=== PATIENT | male | born 1995 | race Two or more races ===

== ENCOUNTER 2019-06-04 12:53 | Emergency (ER) | payer MEDICAID ==
[~2019-06-04] VITALS: Ht 188 cm; Wt 65.8 kg
--- NOTE | 2019-06-04 13:06 | NUR ---
CAME IN FOR DYSURIA AND HEMATURIA x 2 DAYS. 02/02 PS, TO ER BED 10, HOOKED TO BP MONITOR AND POX, CHANGED TO HOSP GOWN, WARM BLANKET PROVIDED, PATIENT AOx 4, BREATHING EVEN AND UNLABORED, NAD NOTED. ORDER FULFILLMENT SPECIALIST DEGRASSE AT BEDSIDE
--- NOTE | 2019-06-04 13:13 | NUR ---
URINE SAMPLE SENT TO LAB
[2019-06-04 13:26] LABS: APPEARANCE,URINE TURBID (CLEAR); BILIRUBIN,URINE SMALL (NEGATIVE); BLOOD, URINE SMALL Ery/uL (NEGATIVE); COLOR,URINE ORANGE (YELLOW); KETONES,URINE 15 (NEGATIVE); LEUKOCYTE ESTERASE ,URINE MODERATE (NEGATIVE); NITRITE, URINE POSITIVE (NEGATIVE); PH,URINE 8.5 (5.0-8.0); PROTEIN,URINE 100 mg/dl (NEGATIVE); UGLUCOSE 250 MG/DL mg/dL (NEGATIVE); UROBILINOGEN,URINE >=8.0 EU/dL (0.2)
[2019-06-04] MEDS ORDERED: ACETAMINOPHEN ES 500 MG TABLET ONE (13:26)
[2019-06-04 13:29] LABS: BASOPHILS % (AUTO) 0.2 % (0.0-2.0); EOSINOPHILS % (AUTO) 0.1 % (0.0-6.0); HEMATOCRIT 41 % (39-51); HEMOGLOBIN 14.6 g/dL (13.5-17.5); LYMPHOCYTES # (AUTO) 1.4 /CMM (0.8-4.8); LYMPHOCYTES % (AUTO) 8.7 % (20.0-44.0); MEAN CORPUSCULAR HGB CONC 36 g/dl (31.0-36.0); MEAN CORPUSCULAR VOLUME 95 fL (80-96); MONOCYTES # (AUTO) 0.9 /CMM (0.1-1.30); NEUTROPHILS # (AUTO) 13.5 /CMM (1.8-8.9); PLATELET COUNT (AUTO) 236 /CMM (150-450); RED BLOOD CELL COUNT(AUTO) 4.35 MIL/uL (4.5-6.0); WHITE BLOOD COUNT (AUTO) 15.8 K/uL (4.3-11.0)
[2019-06-04] MEDS ORDERED: ACETAMINOPHEN ES 500 MG TABLET PO ONE (13:30)
[2019-06-04] MEDS ORDERED: IV NS 0.9% 1,000 ML BAG IV ONE (13:30)
[2019-06-04 13:34] LABS: BACTERIA,URINE Rare /HPF (None Seen); SQUAMOUS EPITHELIAL CELL,UR 0-2 /HPF (None Seen); WBC,URINE TOO NUMEROUS TO COUN /HPF (0-3)
[2019-06-04 13:35] LABS: MUCUS,URINE Moderate /LPF (None Seen); URINE AMORPHOUS URATE Few /HPF (None Seen)
[2019-06-04 13:38] LABS: CALCIUM, SERUM 9.6 mg/dL (8.5-10.1); CREATININE 1.1 mg/dL (0.6-1.3); POTASSIUM 3.6 mmol/L (3.5-5.1)
[2019-06-04 13:45] LABS: ALBUMIN 4.5 g/dL (3.4-5.0); BILIRUBIN,DIRECT 0.4 mg/dL (0.0-0.2); BILIRUBIN,TOTAL 2.1 mg/dL (0.2-1.0); TOTAL PROTEIN, SERUM 8.1 g/dL (6.4-8.2)
[2019-06-04] MEDS ORDERED: LEVOFLOXACIN 500 MG /D5W 100ML 100 ML IV ONE (13:50)
[2019-06-04] MEDS ORDERED: PHENAZOPYRIDINE HCL 200 MG TABLET ONE (13:59)
[2019-06-04] MEDS ORDERED: PHENAZOPYRIDINE HCL 200 MG TABLET PO ONE (14:00)
[2019-06-04] MEDS ORDERED: LEVOFLOXACIN 500 MG /D5W 100ML 500 MG/100 ML PIGGYBACK IV ONE (14:00)
--- NOTE | 2019-06-04 14:48 | NUR ---
IV removed. Catheter intact and site benign. Pressure and 4x4 applied to site. No bleeding noted.Patient discharged to home in stable condition. Written and verbal after care instructions given. Patient verbalizes understanding of instruction.
[2019-06-04 14:49] VITALS: BP 132/74
== END 2019-06-04 14:49 | disposition home or self-care (01) ==
LOC: ER 13:04
DX: N39.0 Urinary tract infection, site not specified (principal)
CPT/HCPCS: 36415; 80048; 80076; 81001; 85025; 87086; 87491; 87591; 96365; 99283; J1956; J7030; 81000-TC

== ENCOUNTER 2019-06-05 23:22 | Emergency (ER) | payer MEDICAID ==
[~2019-06-05] VITALS: Ht 188 cm; Wt 65.8 kg
--- NOTE | 2019-06-05 23:50 | NUR ---
PT BIBS FOR WAS SEEN AT [facility] ER YESTERDAY GIVEN LEVAQUIN AND PYRIDIUM FOR UTI. BUT STILL HAS HEMATURIA AND DYSURIA. C/O REDNESS AND SWELLING ON PENILE AREA. PT AAOX4, AMBULATORY, CONNECTED TO THE MONITOR AND POX
[2019-06-06] MEDS ORDERED: CEFTRIAXONE 500 MG VIAL IM ONE
[2019-06-06] MEDS ORDERED: HYDROCODONE/APAP 5/325MG 1 EACH TABLET PO ONE
[2019-06-06] MEDS ORDERED: AZITHROMYCIN 250 MG TABLET PO ONE
[2019-06-06] MEDS ORDERED: HYDROCODONE/APAP 5/325MG 1 EACH TABLET ONE (00:01)
[2019-06-06] MEDS ORDERED: AZITHROMYCIN 250 MG TABLET ONE ×2 (00:01→00:03)
[2019-06-06] MEDS ORDERED: CEFTRIAXONE 500 MG VIAL ONE (00:01)
[2019-06-06] MEDS ORDERED: LIDOCAINE /MPF 1% VIAL 5 ML VIAL ONE (00:03)
--- NOTE | 2019-06-06 01:58 | NUR ---
Patient discharged to home in stable condition. Rx and Written and verbal after care instructions given. Patient verbalizes understanding of instruction.
[2019-06-06 02:10] VITALS: BP 134/78
== END 2019-06-06 02:11 | disposition home or self-care (01) ==
LOC: ER 23:24
DX: N39.0 Urinary tract infection, site not specified (principal); F17.200 Nicotine dependence, unspecified, uncomplicated
CPT/HCPCS: 76870; 96372; 99284; J0696; J3490

== ENCOUNTER 2020-05-18 14:42 | Emergency (ER) | payer SELFPAY ==
[~2020-05-18] VITALS: Ht 188 cm; Wt 70.3 kg
[2020-05-18 15:02] VITALS: BP 112/65
--- NOTE | 2020-05-18 15:07 | NUR ---
AT BEDSIDE FOR EVAL.
--- NOTE | 2020-05-18 15:19 | NUR ---
Patient discharged to home in stable condition. Written and verbal after care instructions given. Patient verbalizes understanding of instruction.
== END 2020-05-18 15:20 | disposition home or self-care (01) ==
LOC: ER 14:44
DX: R59.0 Localized enlarged lymph nodes (principal); F17.200 Nicotine dependence, unspecified, uncomplicated; Z60.2 Problems related to living alone

== ENCOUNTER 2023-06-10 14:07 | Emergency (ER) | payer MEDICAID, OTHER ==
[~2023-06-10] VITALS: Ht 185.4 cm; Wt 70.3 kg
[2023-06-10] MEDS ORDERED: CLIN300C12 PO (14:43)
[2023-06-10] MEDS ORDERED: CLINDAMYCIN HCL 150 MG CAPSULE ONE (14:53)
[2023-06-10] MEDS: CLINDAMYCIN HCL 150 MG CAPSULE PO ONE (14:53)
[2023-06-10 14:54] VITALS: BP 118/78; TEMP 97.8; O2SAT 97
== END 2023-06-10 14:55 | disposition home or self-care (01) ==
LOC: ER 14:07
DX: J02.9 Acute pharyngitis, unspecified (principal); Z88.0 Allergy status to penicillin; Z60.2 Problems related to living alone